=== PATIENT | male | born 1965 | race Hispanic/Latino ===

== ENCOUNTER 2021-01-02 05:26 | Emergency (ER) | payer OTHER, SELFPAY ==
[2021-01-02 05:27] VITALS: BP 122/94; PULSE 96; RESP 18; TEMP 37.5; O2SAT 96; BMI 21.0
--- NOTE | 2021-01-02 05:43 | RAD_ITS ---
HISTORY: chest pain EXAM: XR Chest 1 View: COMPARISON: None FINDINGS: # of images incl. paperwork: 1 Lungs are clear. Heart is not enlarged. No acute osseous pathology perceived. Pulmonary vascularity is distinct. No effusions. RAD/Chest 1 View (Portable) IMPRESSION: Normal. at 0634 Reported and signed by: Tomás Grant MD Electronically Signed: oTmás Grant MD at 6:33 EDT Tel , Service support ,
--- NOTE | 2021-01-02 05:43 | EKG12_ITS ---
Test Reason : CP Blood Pressure : / mmHG Vent. Rate : 095 BPM Atrial Rate : 095 BPM P-R Int : 118 ms QRS Dur : 090 ms QT Int : 348 ms P-R-T Axes : 078 053 073 degrees QTc Int : 437 ms Normal sinus rhythm Nonspecific ST abnormality Abnormal ECG Confirmed by ELVIRA ANDERSON, LIA ([id number]), editor index GELY THEODORE ([id number]) on 01/05/2021 9:48:58 AM Referred By: JOSH Confirmed By:LIA FELIX MD
[2021-01-02 05:50] LABS: Absolute Lymphocyte Count 2.38 X10^3/uL (0.83-4.51); Absolute Neutrophil Count 1.6 X10^3/uL (2.0-7.7); Basophil# 0.05 X10^3/uL; Basophil% 1.1 % (0-1); Eosinophil# 0.15 X10^3/uL; Eosinophils% 3.2 % (0-5); Hematocrit 46.7 % (40-54); Hemoglobin 15.9 g/dL (13.0-16.5); Lymphocyte # 2.38 X10^3/ul (0.83-4.51); Lymphocyte % 50.2 % (19-41); Mean Corpuscular Hgb 33.8 pg (27.0-32.0); Mean Corpuscular Volume 99.4 fL (80-94); Mean Platelet Vol. 9.2 fl (6.2-12.0); Monocyte# 0.51 X10^3/uL; Monocyte% 10.8 % (0-10); NRBC Flagged by Analyzer 0 % (0-5); Neutrophil # 1.64 X10^3/uL (2.7-7.7); Neutrophil % 34.5 % (47-70); Platelet Count 294 K/mm3 (150-450); RBC Distribution Width CV 14.5 % (11.6-14.6); RBC Distribution Width SD 53.6 fl (35.1-43.9); White Blood Count 4.7 K/mm3 (4.4-11.0)
[2021-01-02] MEDS: 0.9% Normal Saline 1,000 ML 150 ML IV (05:52)
[2021-01-02] MEDS: Morphine 4 MG/ML Syringe IV (05:52)
[2021-01-02] MEDS: Ondansetron 4 MG/2 ML Vial IV (05:52)
[2021-01-02 06:03] LABS: Anion Gap 12 (5-15); BUN 9 mg/dL (7-18); BUN/Creat Ratio 11.7 RATIO (10-20); Calcium,Total 9.1 mg/dL (8.5-10.1); Chloride 107 mmol/L (98-107); Creatinine, Serum 0.77 mg/dL (0.70-1.30); EST Glomerular Filtration Rate 111 mL/min (>60); Est Glom Filt Rate - Afr Amer 135 mL/min (>60); Estimated Creatinine Clearance 89.55 ml/min; Glucose 71 mg/dL (74-106); Potassium 3.8 mmol/L (3.5-5.1); Sodium Level 141 mmol/L (136-145)
[2021-01-02 06:35] VITALS: BP 122/73; PULSE 83; RESP 20; O2SAT 94
[2021-01-02 07:05] VITALS: BP 124/68; PULSE 75; RESP 18; O2SAT 92
--- NOTE | 2021-01-02 07:06 | NURSING ---
NO OLD EKGS
--- NOTE | 2021-01-02 07:58 | ED.VIS.CHEST ---
HPI History of Present Illness Chief Complaint: Chest Pain Informant: patient Onset/Context/Timing Onset: Today Activity at onset: gradual Timing: Waxes and wanes Quality: Positive for Pressure and Sharp Location: - (Left lateral chest) Current Severity: Mild Maximum Severity: Moderate Worsened By: Palpation Associated Symptoms: Negative for Dyspnea PFSH PFSH no medical history Home Medications NK 01/02/21 [History Last Taken Unknown] prednisone 40 mg PO DAILY #10 tab 01/02/21 [Rx Last Taken Unknown] tramadol 50 mg PO Q8H PRN #14 tab 01/02/21 [Rx Last Taken Unknown] Allergy/AdvReac Type Severity Reaction Status Date / Time shellfish derived Allergy Anaphylaxis Verified 01/02/21 05:31 Social History Smoking Status: Current every day smoker tobacco type: cigarettes ROS ROS ED Constitutional Constitutional ED: Denies chills or fever(s) Eyes Eyes: Denies change in vision ENT ENT ED: Denies sore throat Cardiovascular Cardiovascular: Reports chest pain Respiratory/Chest Respiratory/Chest: Denies cough or dyspnea Gastrointestinal Gastrointestinal: Denies abdominal pain, diarrhea, nausea or vomiting Genitourinary Genitourinary ED: Denies dysuria Musculoskeletal Musculoskeletal: Denies back pain Integumentary Denies rash Neurologic Neurologic: Denies headache(s) or weakness Psychiatric Psychiatric: Denies anxiety or depression Endocrine Endocrinology: Denies polydipsia or polyuria Allergic/Immunologic Allergic/Immunologic ED: Denies urticaria EXAM Physical Exam Const Vital Signs: 01/02/21 05:27 01/02/21 05:52 01/02/21 06:35 Temperature 99.5 F H Temperature Source Oral Pulse Rate 96 83 Respiratory Rate 18 20 H Blood Pressure 122/94 H 122/73 H Blood Pressure Mean 103 89 Pulse Ox 96 94 Oxygen Delivery Method Room Air Room Air Room Air 01/02/21 07:05 Temperature Temperature Source Pulse Rate 75 Respiratory Rate 18 Blood Pressure 124/68 H Blood Pressure Mean 86 Pulse Ox 92 Oxygen Delivery Method Room Air Positive well nourished and well developed General Appearance ED: well developed HEENT Reports normocephalic and head/scalp atraumatic Eyes PERRL and EOMs intact bilaterally Neck supple Chest Wall inspection of chest normal Chest Narrative: Reproducible tenderness over the lateral portion of the left chest wall. No crepitus. No overlying skin change. Resp normal respiratory effort and clear to auscultation bilaterally Cardio regular rate and regular rhythm GI normal to inspection, nondistended, normoactive bowel sounds Palpation: soft Extremity normal to inspection Neuro oriented x3 and no sensory deficits noted Sensorium / Orientation: alert Motor Exam: strength 5/5 throughout Psych mental status grossly normal Skin no rashes or lesions noted Heart Score History: Slightly/Non-Suspicious ECG: Normal Age: >45 - <65 years Risk Factors: 1 or 2 Risk Factors Troponin: </= Normal Limit Score: 2 MDM MDM MDM Narrative Medical decision making narrative: Patient was given 4 baby aspirin and nitroglycerin with EMS. EKG, chest x-ray, labs are obtained. Lab Data Attestation: I reviewed the patient's lab results. Labs: Laboratory Results - last 24 hr 01/02/21 01/02/21 01/02/21 05:10 05:10 08:15 WBC 4.7 RBC 4.70 Hgb 15.9 Hct 46.7 MCV 99.4 H MCH 33.8 H MCHC 34.0 RDW Std Deviation 53.6 H RDW Coeff of Cecilia 14.5 Plt Count 294 MPV 9.2 Immature Gran % (Auto) 0.200 Neut % (Auto) 34.5 L Lymph % (Auto) 50.2 H [place] % (Auto) 10.8 H Eos % (Auto) 3.2 Baso % (Auto) 1.1 H Absolute Neuts (auto) 1.6 L Absolute Lymphs (auto) 2.38 Nucleated RBC % 0 Sodium 141 Potassium 3.8 Chloride 107 Carbon Dioxide 22.0 Anion Gap 12 BUN 9 Creatinine 0.77 Estim Creat Clear Calc 89.55 Est GFR (MDRD) Af Amer 135 Est GFR (MDRD) Non-Af 111 BUN/Creatinine Ratio 11.7 Glucose 71 L Calcium 9.1 Troponin I < 0.015 < 0.015 Radiography Chest X-Ray - ED: 1 View, Read by ED Physician, Normal, Heart, Lungs and Mediastinum Diagnostic Testing: Radiology Impression Chest X-Ray 01/02/21 05:43 IMPRESSION: Normal. at 0634 Reported and signed by: Tomás Grant MD Electronically Signed: Tomás Grant MD at 6:33 EDT Tel , Service support , EKG Initial EKG: Attestation: I personally reviewed and interpreted this EKG as follows: Interpretation: Sinus Rhythm (Sinus at 95. Slight, 1/2 mm, ST depression noted in inferior and lateral leads.) Follow-up EKG: Attestation: I personally reviewed and interpreted this EKG as follows: Interpretation: Sinus Rhythm (Sinus at 65 with sinus arrhythmia. No significant ST change noted.) Treatment and Re-Evaluation Comments:: Patient was given a dose of morphine for pain control. Patient's chest pain is reproducible and sharp in nature, not typical for cardiac disease. Initial enzymes are negative. Patient does agree to a 3-hour repeat EKG and troponin. These are also unremarkable. Patient will be given analgesics for pain at home. He will be given today off work. Discharge Plan Triage Chief Complaint: Chest Pain ED Provider: Darlene Lozada Dx/Rx/DC Orders Clinical Impression: Acute chest wall pain Instructions: ED Chest Wall Pain, Costochondritis Prescriptions: New tramadol 50 mg tablet 50 mg PO Q8H PRN (Reason: pain) Qty: 14 RF: 0 prednisone 20 mg tablet 40 mg PO DAILY Qty: 10 RF: 0 No Action NK RF: 0 Stand Alone Forms: ED Work / School Excuse Primary Care Provider: Alvarez Fisher Referrals: Alvarez Fisher MD [Primary Care Provider] - As soon as possible Disposition Disposition: Home, self care
--- NOTE | 2021-01-02 08:00 | EKG12_ITS ---
Test Reason : CP REPEAT Blood Pressure : / mmHG Vent. Rate : 065 BPM Atrial Rate : 065 BPM P-R Int : 126 ms QRS Dur : 094 ms QT Int : 418 ms P-R-T Axes : 062 035 064 degrees QTc Int : 434 ms Normal sinus rhythm with sinus arrhythmia Normal ECG Confirmed by ELVIRA ANDERSON, LIA ([id number]), content editor GELY THEODORE ([id number]) on 01/05/2021 9:48:44 AM Referred By: ALE Confirmed By:LIA FELIX MD
[2021-01-02 09:04] VITALS: BP 134/79; PULSE 86; RESP 17; O2SAT 93
== END 2021-01-02 09:05 | disposition home or self-care (01) ==
PROVIDERS: Emergency Provider Emergency Medicine; PCP Internal Medicine
DX: R07.89 Other chest pain (principal); F17.210 Nicotine dependence, cigarettes, uncomplicated; Z79.52 Long term (current) use of systemic steroids; Z79.899 Other long term (current) drug therapy
CPT/HCPCS: 71045; 80048; 84484; 85025; 93005; 96361; 96374; 96375; 99285; J7030; A4216; J2405

== ENCOUNTER 2021-08-09 16:45 | Emergency (ER) | payer OTHER, SELFPAY ==
[2021-08-09 16:47] VITALS: BP 152/79; PULSE 82; RESP 16; TEMP 36.4; O2SAT 98; BMI 20.5
[2021-08-09] MEDS: Diphth,Pertuss(Acell),Tet Vac 0.5 ML Vial IM (18:40)
[2021-08-09] MEDS: Lidocaine 1% (20 ml mdv) 20 ML Vial INFILT (18:41)
--- NOTE | 2021-08-09 19:59 | EX.ED.UPPERE ---
HPI History of Present Illness HPI Narrative: Patient presents with a laceration to his right ring finger that occurred today. Patient states that he cut his finger on a piece of metal. Patient states the bleeding has been persistent. Patient states his last tetanus was more than 10 years ago. Patient states his bleeding is worse with flexion of the finger. Patient states that improved with pressure and dressings. Patient denies any paresthesias or weakness. Patient denies any other injuries. Chief Complaint: Laceration Informant: patient Onset/Context/Timing Onset: Today Context: Sudden Onset Timing: Continuous Location: Right ring finger Worsened by: Movement and palpation Relieved by: Nothing Associated Symptoms Associated Symptoms: Negative for Parasthesia, Weakness and Loss of Funtion Narrative Tetanus Immunization: >10 years PFSH PFSH Medical History no medical history no medical history Home Medications NK 01/02/21 [History Last Taken Unknown] Allergy/AdvReac Type Severity Reaction Status Date / Time shellfish derived Allergy Anaphylaxis Verified 08/09/21 16:45 Family History no significant family his Surgical History no surgical history no surgical history Social History Smoking Status: Current every day smoker tobacco type: cigarettes ROS ROS ED Constitutional Constitutional ED: Denies chills or fever(s) Eyes Eyes: Denies blurry vision or change in vision ENT ENT ED: Denies rhinorrhea or sore throat Cardiovascular Cardiovascular: Denies chest pain or palpitations Respiratory/Chest Respiratory/Chest: Denies cough or dyspnea Gastrointestinal Gastrointestinal: Denies nausea or vomiting Genitourinary Genitourinary ED: Denies dysuria or hematuria Musculoskeletal Musculoskeletal: Denies back pain or neck pain Integumentary Denies abscess or rash Neurologic Neurologic: Denies headache(s) or weakness Allergic/Immunologic Allergic/Immunologic ED: Denies mouth swelling or urticaria EXAM Physical Exam Const Vital Signs: 08/09/21 16:47 Temperature 97.5 F L Temperature Source Temporal Pulse Rate 82 Respiratory Rate 16 Blood Pressure 152/79 H Blood Pressure Mean 103 Pulse Ox 98 Oxygen Delivery Method Room Air Positive well nourished and well developed General Appearance ED: well developed HEENT Reports moist mucous membranes Neck full ROM and supple Neuro oriented x3, CN's II-XII intact bilaterally, moves all extremities, no focal motor deficits and no sensory deficits noted Sensorium / Orientation: alert Psych mental status grossly normal Skin Skin Narrative: There is a 1 cm full-thickness linear laceration over the dorsal and ulnar aspect of the right ring finger over the PIP joint. There is no foreign body noted. There is mild gapping of the wound margins. There is moderate bleeding noted. Strength is 5/5 in flexion and extension of the MP, PIP, and DIP joints. There are no sensory deficits noted. Capillary refills less than 2 seconds in all digits. MDM MDM MDM Narrative Medical decision making narrative: The wound was cleaned and irrigated with copious amounts of normal saline. The wound was anesthetized with 1% plain lidocaine via digital block. The wound was closed with 2 simple interrupted #4-0 nylon sutures under sterile technique. Patient tolerated the procedure well. Bacitracin dressing was applied. Patient was given a tetanus booster. Patient was instructed to keep the wound clean and dry. Patient was instructed to follow-up with his primary care physician in 5 days for wound recheck and suture removal. Patient understood and was agreeable with plan. All questions were answered. Procedures Lacerations Right ring finger: Length: 1 cm Depth: Skin Shape: Linear Prep: Sterile Conditions and Chlorhexadine Laceration repair: Digital block, Irrigated and Lidocaine Number of Sutures/Reilly: 2 Suture Information: Ethilon and 4-0 Discharge Plan Triage Chief Complaint: Laceration ED Provider: Luis Norris Dx/Rx/DC Orders Clinical Impression: Laceration of right ring finger Instructions: ED Laceration, Hand: All Closures Prescriptions: No Action NK RF: 0 Stand Alone Forms: ED Work / School Excuse Primary Care Provider: Alvarez Fisher Referrals: Alvarez Fisher MD [Primary Care Provider] - 5 Days for suture removal Disposition Disposition: Home, Self Care Discharge Date/Time: 08/09/21 20:15
[2021-08-09 20:15] VITALS: RESP 16
== END 2021-08-09 20:15 | disposition home or self-care (01) ==
PROVIDERS: Emergency Provider Emergency Medicine; PCP Internal Medicine; Visit Provider Emergency Medicine
DX: S61.214A Laceration without foreign body of right ring finger without damage to nail, initial encounter (principal); W26.8XXA Contact with other sharp object(s), not elsewhere classified, initial encounter; F17.210 Nicotine dependence, cigarettes, uncomplicated
CPT/HCPCS: 12001; 90471; 90715; 99283